=== PATIENT | male | born 1955 | race Caucasian/White ===

== ENCOUNTER 2017-09-09 18:35 | Emergency (ER) | payer OTHER ==
[~2017-09-09] VITALS: Ht 182.9 cm; Wt 149.7 kg
[2017-09-09 18:36] VITALS: BP 167/92
[2017-09-09] MEDS ORDERED: COUMADIN7.5 MG PO (18:43)
[2017-09-09] MEDS ORDERED: COUMADIN 5 MG TA5 M1 PO (18:44)
[2017-09-09] MEDS ORDERED: ULTRAM 50MG TAB50 MG PO (19:22)
== END 2017-09-09 19:44 | disposition home or self-care (01) ==
LOC: ER 18:35
DX: S83.91XA Sprain of unspecified site of right knee, initial encounter (principal); T14.8XXA Other injury of unspecified body region, initial encounter; I10 Essential (primary) hypertension; V49.40XA Driver injured in collision with unspecified motor vehicles in traffic accident, initial encounter; Y92.89 Other specified places as the place of occurrence of the external cause; Y93.89 Activity, other specified; Y99.8 Other external cause status